=== PATIENT | female | born 1990 ===

== ENCOUNTER 2017-10-22 12:36 | Emergency (ER) | payer MEDICAID, OTHER ==
--- NOTE | 2017-10-22 12:57 | C.PDOC ---
History Of Present Illness 27yo female, presents to ED with complaints of cough, congestion, diarrhea for the past 3 days. Patient reports positive sick contacts with her 2 kids who exhibited similar symptoms after returning from their other parent's home. She reports associated headache and generalized bodyaches. No other medical complaints. Time Seen by Provider: 10/22/17 12:41 Chief Complaint (Nursing): Flu-like Symptoms History Per: Patient History/Exam Limitations: no limitations Onset/Duration Of Symptoms: Days (5) Current Symptoms Are (Timing): Still Present Sick Contacts (Context): Family Member(s) Associated Symptoms: Fever, Cough, Nausea, Vomiting Past Medical History Reviewed: Historical Data, Nursing Documentation, Vital Signs Vital Signs: Last Vital Signs Temp 99.2 F 10/22/17 13:02 Pulse 98 H 10/22/17 13:02 Resp 20 10/22/17 13:02 BP 119/75 10/22/17 13:02 Pulse Ox 99 10/22/17 13:02 - Medical History PMH: No Chronic Diseases Surgical History: No Surg Hx Family History: States: No Known Family Hx Review Of Systems Constitutional: Negative for: Fever Eyes: Negative for: Vision Change, Redness ENT: Positive for: Nose Congestion, Throat Pain. Negative for: Ear Pain Cardiovascular: Negative for: Palpitations Respiratory: Positive for: Cough. Negative for: Sputum, Wheezing Gastrointestinal: Positive for: Vomiting, Diarrhea Genitourinary: Negative for: Dysuria Skin: Negative for: Rash Neurological: Positive for: Headache. Negative for: Weakness, Numbness Physical Exam - Physical Exam Appears: Well, Non-toxic, No Acute Distress Skin: Normal Color Head: Atraumatic, Normacephalic Eye(s): bilateral: Normal Inspection, PERRL, EOMI Ear(s): Bilateral: Normal (no erythema) Nose: Normal Oral Mucosa: Moist Throat: Normal Neck: Normal ROM, Supple Chest: Symmetrical Cardiovascular: Rhythm Regular Respiratory: Normal Breath Sounds, No Wheezing Gastrointestinal/Abdominal: Bowel Sounds, Soft, No Tenderness, No Distention, No Guarding Extremity: Bilateral: Atraumatic, Normal Color And Temperature, Normal ROM Neurological/Psych: Oriented x3, Normal Speech Gait: Steady Medical Decision Making Medical Decision Making: Patient complains of multiple, flu like symptoms and is being evaluated in ED with her 2 children. she appears well, nontoxic and well hydrated. Exam was benign. Recommend supportive treatment. Advise to take tylenol as needed for fever, to keep herself hydrated. Patient stable for discharge home. Disposition Counseled Patient/Family Regarding: Diagnosis, Need For Followup, Rx Given - Disposition Referrals: Mason Mcgovern Jr., MD [Staff Provider] - Disposition: HOME/ ROUTINE Disposition Time: 13:10 Condition: GOOD Additional Instructions: You have viral infection. Take Tylenol or Motrin alternating every 4-6 hours for Fever 100.4F or higher. Rest and drink plenty of fluids. May use cool mist humidifier or vaporizer in room. Try taking over the counter antihistamine ( Claritin, Fern, Zyrtec), Decongestant or Cough medicine as needed every 6-8 hours. Follow up with your primary medical doctor or clinic in 1 week for further evaluation. 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 - Scribe Statement The provider has reviewed the documentation as recorded by the Dilip Lafleur Provider Scribe Attestation: All medical record entries made by the Dilip were at my direction and personally dictated by me. I have reviewed the chart and agree that the record accurately reflects my personal performance of the history, physical exam, medical decision making, and the department course for this patient. I have also personally directed, reviewed, and agree with the discharge instructions and disposition.
[2017-10-22 13:07] VITALS: BP 119/75; PULSE 98; RESP 20; TEMP 99.2; O2SAT 99
== END 2017-10-22 13:25 | disposition home or self-care (01) ==
LOC: C.ER 12:36
DX: J11.1 Influenza due to unidentified influenza virus with other respiratory manifestations (principal)